=== PATIENT | male | born 1945 | race Caucasian/White ===

== ENCOUNTER → 2019-03-01 | Outpatient (CLI) | payer MEDICARE, OTHER | LOC: COL.RAD 13:50 | DX: J34.89 Other specified disorders of nose and nasal sinuses (principal) ==

== ENCOUNTER 2021-01-11 13:42 | Emergency (ER) | payer MEDICARE, OTHER ==
[~2021-01-11] VITALS: Ht 172.7 cm; Wt 75.0 kg
[2021-01-11 14:56] LABS: COLLECTION METHOD CATHETER
[2021-01-11 15:13] LABS: BASO % 0.2 % (0.0-2.0); EOS % 0.1 % (0-4.0); GRAN # 9.6 (1.4-6.5); GRAN % 87.1 % (42.2-75.2); HEMATOCRIT 44.6 % (42.0-52.0); HEMOGLOBIN 15.4 g/dl (13.5-18.0); LYMPH # 0.6 (1.2-3.4); LYMPH % 5.5 % (20.0-51.0); MEAN CELL VOLUME 91 fl (80.0-100.0); MEAN CORPUSCULAR HEMOGLOBIN 31 pg (27.0-31.0); MEAN CORPUSCULAR HGB CONC 35 g/dl (33.0-37.0); MONO # 0.7 (0.1-0.6); MONO % 6.7 % (1.7-9.3); PLATELET COUNT 242 K/mm3 (130-400); RED BLOOD COUNT 4.93 M/mm3 (4.20-5.60); REDCELL DISTRIBUTION WIDTH-CV 12.4 % (11.5-14.5)
[2021-01-11 15:20] LABS: MUCOUS Present /lpf; PH 5 (5-8); SQUAMOUS EPITHELIAL None Seen /hpf; URINE APPEARANCE Clear; URINE BACTERIA Rare /hpf; URINE BILIRUBIN Negative (NEGATIVE); URINE BLOOD 2+ (NEGATIVE); URINE COLOR Yellow; URINE GLUCOSE Negative (NEGATIVE); URINE KETONE Trace (NEGATIVE); URINE LEUKOCYTE ESTERASE Negative (NEGATIVE); URINE NITRATE Negative (NEGATIVE); URINE PROTEIN(semi-quant) Negative (NEGATIVE); URINE RBC >50 /hpf; URINE UROBILINOGEN Negative (NEGATIVE)
[2021-01-11 15:22] LABS: ALBUMIN 4.6 gm/dL (3.5-5.0); BILIRUBIN,TOTAL 0.9 mg/dL (0.0-1.0); C-REACTIVE PROTEIN 2.3 mg/dL (0.0-0.9); CALCIUM 9.5 mg/dL (8.4-10.2); CREATININE, serum 0.95 (0.66-1.25); POTASSIUM 3.6 mmol/L (3.4-5.0)
[2021-01-11 17:24] VITALS: BP 148/64; PULSE 74; TEMP 98.3
== END 2021-01-11 17:31 | disposition home or self-care (01) ==
LOC: COL.ER 13:42
PROVIDERS: Physician Assistant
DX: N13.9 Obstructive and reflux uropathy, unspecified (principal)
CPT/HCPCS: Q9967

== ENCOUNTER 2021-02-03 10:49 | Day surgery (SDC) | payer MEDICARE ==
[2021-02-03] VITALS (11 sets, daily range): BP systolic 103–169; BP diastolic 50–90; PULSE 70–99; TEMP 97.6–98.7
[~2021-02-03] VITALS: Ht 172.7 cm; Wt 74.2 kg
--- NOTE | 2021-02-03 11:41 | NUR ---
RECHECKED B/P 157/79 AND 90PULSE
[2021-02-03] MEDS ORDERED: CIPRO 500MG TA500 MG PO (11:42)
[2021-02-03] MEDS ORDERED: FLOMAX 0.40.4 MG/CAP PO (11:42)
--- NOTE | 2021-02-03 11:45 | NUR ---
TO RM 8 AT 1058- CALL LIGHT IN REACH
--- NOTE | 2021-02-03 16:01 | NUR ---
Patient post op TURP. CBI infusing at moderate rate. Fernandez catheter patent and draining oc pink urine. No c/o at this time.
--- NOTE | 2021-02-03 21:30 | NUR ---
Patient resting in bed. CBI running slow draining clear pink. IV fluids capped. Patient up to brush his teeth with standby assist. No complaints of pain. Call light in reach.
[2021-02-04 04:06] VITALS: BP 119/65; PULSE 81; TEMP 97
[2021-02-04 04:10] VITALS: BP 126/65; PULSE 70; TEMP 98
--- NOTE | 2021-02-04 06:47 | NUR ---
CBI clamped at this time.
[2021-02-04 08:52] VITALS: BP 123/54; PULSE 79; TEMP 98.1
--- NOTE | 2021-02-04 09:09 | NUR ---
SW met with the patient to discuss discharge plan. The patient lives in [place] with his , Dianne ([phone]). He reports independence with ADLs and does not have any DME. The patient's PCP is Dr. Deangelo Solis and he receives his medications from [facility]. He reports no difficulties obtaining his meds. The patient's DPOA-HC is in his chart and it designates his . The patient plans to return home with his upon discharge. No additional needs at this time.
--- NOTE | 2021-02-04 09:30 | NUR ---
Patient alert and oriented, answers questions appropriately. See assessment. Fernandez catheter patent and draining clear pink urine. CBI clamped at shift change. No c/o at this time.
--- NOTE | 2021-02-04 09:52 | NUR ---
Initial visit; Patient thanked [employer] Worker for looking in on him, visiting and offering God's blessings.
[2021-02-04 11:59] VITALS: BP 137/72; PULSE 82; TEMP 98.5
--- NOTE | 2021-02-04 12:52 | NUR ---
Fernandez catheter discontinued at 1245 per doctors order. Six bottle routine initated.
--- NOTE | 2021-02-04 16:07 | NUR ---
DISCHARGE INSTRUCTIONS REVIEWED WITH PT, HE VOICED UNDERSTANDING. DISCHARGED AMBULATORY TO AUTO/HOME WITH SPOUSE AT 1605.
== END 2021-02-04 16:05 | disposition home or self-care (01) ==
LOC: SDCO 10:49 → SURG 14:45 → SDCO 02-04 16:05
DX: N40.1 Benign prostatic hyperplasia with lower urinary tract symptoms (principal); N13.8 Other obstructive and reflux uropathy; R33.8 Other retention of urine; Z20.822 Contact with and (suspected) exposure to COVID-19
CPT/HCPCS: OP; J0690; J1200; J2175; J2250; J2704; J3010; J7120

== ENCOUNTER → 2023-09-02 | Outpatient (CLI) | payer MEDICARE, OTHER ==
[~2023-09-02] MED LIST: CIPRO 500MG TA500 MG PO; FLOMAX 0.40.4 MG/CAP PO
== END ==
LOC: COL.RAD 09:16
DX: K22.89 Other specified disease of esophagus (principal); R13.14 Dysphagia, pharyngoesophageal phase